=== PATIENT | female | born 1985 | race Caucasian/White ===

== ENCOUNTER → 2022-06-10 13:27 | Outpatient (BNVA) | payer OTHER, SELFPAY | PROVIDERS: PCP Internal Medicine; Visit Provider Internal Medicine | DX: M79.601 Pain in right arm (principal) | CPT/HCPCS: 99202 ==

== ENCOUNTER → 2022-06-18 08:55 | Outpatient (BNVA) | payer SELFPAY | PROVIDERS: PCP Internal Medicine; Visit Provider Internal Medicine | DX: M79.631 Pain in right forearm (principal) | CPT/HCPCS: 99213 ==

== ENCOUNTER → 2022-07-06 10:57 | Outpatient (BNVA) | payer MEDICAID, OTHER, SELFPAY | PROVIDERS: PCP Internal Medicine; Visit Provider Internal Medicine | DX: M79.622 Pain in left upper arm (principal) | CPT/HCPCS: 99213 ==